=== PATIENT | female | born 1990 | race African-American/Black ===

== ENCOUNTER 2017-12-05 11:14 | Emergency (ER) | payer OTHER ==
[~2017-12-05] VITALS: Ht 160 cm; Wt 61.2 kg
[~2017-12-05 11:14] MED LIST: AUGMENTIN 875 M1 TAB PO; BENADRYL A12.5 MG/5 PO; CLARINEX5 M1 PO; EPIPEN 2-P0.3 MG/0.3 IM; MIRENA1 EACH; MULTIVITAMIN1 TAB PO; NASONEX17 GM NASB; PATADAY2.5 ML OP; ZOFRAN4 M2 PO
[2017-12-05 11:27] VITALS: BP 118/71
== END 2017-12-05 12:37 | disposition admitted as inpatient to this hospital (09) ==
LOC: ERH 11:14
DX: Z48.02 Encounter for removal of sutures (principal)

== ENCOUNTER 2017-12-05 21:23 | Emergency (ER) | payer OTHER ==
[2017-12-05 21:56] VITALS: BP 124/79
--- NOTE | 2017-12-05 22:55 | ED ANIMAL BITE/WOUND CHECK ---
History of Present Illness General Chief Complaint: Suture Removal/Wound Recheck Stated Complaint: STAPLE REMOVAL Source: patient Exam Limitations: no limitations Vital Signs & Intake/Output Vital Signs & Intake/Output Vital Signs Date Time Temp Pulse Resp B/P B/P Pulse O2 O2 Flow FiO2 Mean Ox Delivery Rate 12/056 98.3 60 20 124/79 98 Allergies Coded Allergies: peanut (ITCHING, HIVES 12/05/17) Reconcile Medications Desloratadine (Clarinex) 5 MG TABLET 1 TAB PO DAILY ALLERGIES Diphenhydramine HCl (Benadryl Allergy) 12.5 MG/5 ML LIQUID 10 ML PO PRN ALLERGIES (Reported) Levonorgestrel (Mirena) 1 EACH IUD CONTROL (Reported) Mometasone Furoate (Nasonex) 17 GM SPRAY.PUMP 2 SPRAY NASB DAILY rhinitis Mometasone Furoate (Nasonex) 17 GM SPRAY.PUMP 2 SPRAY NASB DAILY CONGESTION Multivitamin (Multiple Vitamins) 1 TAB TAB 1 TAB PO DAILY SUPPLEMENT ( Reported) Olopatadine HCl (Pataday) 2.5 ML DROPS 1 GTT OP DAILY ALLERGIC CONJUNCTIVITIS Ondansetron HCl (Zofran) 4 MG TABLET 1 TAB PO TID PRN NAUSEA Triage Note: PER PT LUIS TO BACK OF HEAD HERE FOR REMOVAL IN 8 DAYS NO CO OF FEVERS OR DRAINAGE Triage Nurses Notes Reviewed? yes Onset: Abrupt Duration: day(s):, constant Timing: recent history : No Patient currently breastfeeds: No HPI: 27-year-old female comes into the emergency room for staple removal. Denies any fever chills redness on discharge. Denies any other associated symptoms. (Frankie Colon) Past History Travel History Traveled to [place] past 21 day No Medical History Any Pertinent Medical History? see below for history Neurological: NONE EENT: NONE Cardiovascular: NONE Respiratory: NONE Gastrointestinal: NONE Hepatic: NONE Renal: NONE Musculoskeletal: NONE Psychiatric: NONE Endocrine: NONE Blood Disorders: NONE Cancer(s): NONE CLINICAL APPLICATION MANAGER/Reproductive: NONE Tetanus Vaccine: 06/14/15 Surgical History Surgical History: non-contributory Psychosocial History What is your primary language Slovak Tobacco Use: Never used Family History Hx Contributory? No (Frankie Colon) Review of Systems Review of Systems Constitutional: Reports: no symptoms. EENTM: Reports: no symptoms. Respiratory: Reports: no symptoms. Cardiovascular: Reports: no symptoms. GI: Reports: no symptoms. Genitourinary: Reports: no symptoms. Musculoskeletal: Reports: no symptoms. Skin: Reports: see HPI. Neurological/Psychological: Reports: no symptoms. Hematologic/Endocrine: Reports: no symptoms. Immunologic/Allergic: Reports: no symptoms. All Other Systems: Reviewed and Negative (Frankie Colon) Physical Exam Physical Exam General Appearance: well developed/nourished, mild distress Head: 3 taples posterior scalp, no discharge, no erythema Eyes: Bilateral: normal appearance. Ears, Nose, Throat: normal ENT inspection, hearing grossly normal Neck: normal inspection Respiratory: no respiratory distress Back: normal inspection Extremities: normal range of motion Neurologic/Psych: awake, alert, oriented x 3, normal mood/affect Skin: intact, normal color, warm/dry (Frankie Colon) Progress Differential Diagnosis: abscess, cellulitis, joint infection, tenosysnovitis Plan of Care: stasples removed (Frankie Colon) Departure Departure Disposition: HOME OR SELF CARE Condition: Stable Clinical Impression Primary Impression: Removal of luis Referrals: Patient Has No Primary Care Dr (PCP/Family) Additional Instructions: Return if any concerns worsening symptoms. Please go over all results of today's visit with your primary care doctor. Contact your primary care doctor to let them know you were here in the emergency room. There may be nonspecific findings which may not be related to your visit today here in the emergency room but may require further evaluation and chronic monitoring by your primary care doctor. If you had a laceration today the chance of foreign body always remains. You should follow-up with your primary care doctor for recheck in 3-5 days for a wound check. If you had an x-ray done there is a chance that a fracture could have been missed on initial read and you should follow-up with your primary care doctor for repeat x-rays if symptoms persist. If your blood pressure was elevated here in the emergency room please have rechecked by [facility] primary care doctor within the next 48. If you were prescribed a narcotic here in the emergency room or any type of controlled substances you're not allowed to drive while taking this medication or operate any type of heavy machinery. Narcotics can make you feel lightheaded dizziness nausea and can cause constipation. You may need to poultry picking machine tender a stool softener. Thank you for choosing [facility] emergency room. Please return to the emergency room immediately if you have any other concerns worsening of symptoms. Departure Forms: Customer Survey General Discharge Information (Frankie Colon) PA/PUBLIC RELATIONS SUPERVISOR Co-Sign Statement Statement: ED Attending supervision documentation- [] I saw and evaluated the patient. I have also reviewed all the pertinent lab results and diagnostic results. I agree with the findings and the plan of care as documented in the PA's/PUBLIC RELATIONS SUPERVISOR's documentation. [X] I have reviewed the ED Record and agree with the PA's/PUBLIC RELATIONS SUPERVISOR's documentation. [] Additions or exceptions (if any) to the PAs/PUBLIC RELATIONS SUPERVISOR's note and plan are summarized below: [] (Bipin DEWEY,Dallin Kidd)
== END 2017-12-05 23:36 ==
LOC: ERH 21:23
DX: Z48.02 Encounter for removal of sutures (principal)